=== PATIENT | male | born 1995 | race Caucasian/White ===

== ENCOUNTER 2017-11-29 23:30 | Emergency (ER) | payer OTHER ==
[~2017-11-29] VITALS: Ht 175.3 cm; Wt 72.6 kg
[2017-11-29 23:30] VITALS: BP 144/98
--- NOTE | 2017-11-29 23:30 | NUR ---
PATIENT ABDULAZIZ [facility] [employer] TO ER CHAIR Patrizia
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
== END 2017-11-30 00:05 ==
LOC: MED 23:30
DX: I10 Essential (primary) hypertension (principal); F12.90 Cannabis use, unspecified, uncomplicated; F15.90 Other stimulant use, unspecified, uncomplicated; Z02.89 Encounter for other administrative examinations; V49.9XXA Car occupant (driver) (passenger) injured in unspecified traffic accident, initial encounter; Y93.89 Activity, other specified; Y92.89 Other specified places as the place of occurrence of the external cause; Y99.8 Other external cause status
CPT/HCPCS: 99283